=== PATIENT | female | born 1995 | race Caucasian/White ===

== ENCOUNTER 2021-05-29 22:08 | Emergency (ER) | payer OTHER ==
[~2021-05-29 22:08] MED LIST: AUGMENTIN 875-1 EACH PO
== END 2021-05-29 23:40 | disposition home or self-care (01) ==
LOC: ER1 22:08
DX: R09.89 Other specified symptoms and signs involving the circulatory and respiratory systems (principal); E03.9 Hypothyroidism, unspecified; F17.210 Nicotine dependence, cigarettes, uncomplicated; Z20.822 Contact with and (suspected) exposure to COVID-19
CPT/HCPCS: 99283; U0002

== ENCOUNTER → 2021-06-23 | Outpatient (CLI) | payer OTHER | LOC: RAD 18:05 | DX: S90.02XA Contusion of left ankle, initial encounter (principal) | CPT/HCPCS: 73610 ==

== ENCOUNTER 2022-03-09 15:13 | Emergency (ER) | payer OTHER ==
[2022-03-09 16:37] LABS: HEMOGLOBIN 13.3 gm/dl (12.3-15.3); RED BLOOD COUNT 4.2 M/UL (4.00-5.10); WHITE BLOOD COUNT 13.7 K/UL (4.5-11.0)
[2022-03-09 17:11] LABS: BUN/CREATININE RATIO 17 (0-10)
[2022-03-09] MEDS ORDERED: AMOX TR-K CLV1 EAC4 PO (21:23)
[2022-03-09] MEDS ORDERED: IBUPROFEN600 MG PO (21:23)
[2022-03-09] MEDS ORDERED: BROMFED DM COU473 ML PO (21:23)
== END 2022-03-09 21:33 | disposition home or self-care (01) ==
LOC: ER1 15:13
PROVIDERS: Physician Assistant
DX: R09.1 Pleurisy (principal); N39.0 Urinary tract infection, site not specified; F17.200 Nicotine dependence, unspecified, uncomplicated
CPT/HCPCS: 71045; 80053; 81001; 82550; 82553; 84484; 85025; 85379; 93005; 99285

== ENCOUNTER 2022-05-29 17:10 | Emergency (ER) | payer OTHER ==
[~2022-05-29 17:10] MED LIST changes: +AMOX TR-K CLV1 EAC4 PO; +BROMFED DM COU473 ML PO; +IBUPROFEN600 MG PO
[2022-05-29 17:56] LABS: HEMOGLOBIN 14.7 gm/dl (12.3-15.3); RED BLOOD COUNT 4.84 M/UL (4.00-5.10); WHITE BLOOD COUNT 14.8 K/UL (4.5-11.0)
[2022-05-29 18:17] LABS: BUN/CREATININE RATIO 15 (0-10)
== END 2022-05-29 18:36 | disposition left against medical advice (07) ==
LOC: ER1 17:10
PROVIDERS: Physician Assistant Medical
DX: R20.0 Anesthesia of skin (principal); F17.290 Nicotine dependence, other tobacco product, uncomplicated
CPT/HCPCS: 80053; 82550; 82553; 84484; 85025; 93005; 99283